=== PATIENT | male | born 1995 | race Caucasian/White ===

== ENCOUNTER 2024-06-04 11:54 | Emergency (ER) | payer BC, SELFPAY ==
--- NOTE | 2024-06-04 12:59 | PD.EDANKLE ---
Lower Extremity Injury RME/HPI General Chief Complaint: Ankle/Foot Injury Stated Complaint: LEFT BIG TOE INGROWN NAIL Time Seen by Provider: 06/04/24 12:20 Source: patient Arrival date/time: 06/04/24 11:54 This is a 29-year-old male who presents to the emergency department for evaluation of recurrent ingrown toenails, currently affecting the left great toe. He reports a history of similar issues in the past. The patient is currently on antibiotics and has been evaluated by his primary care provider. He is pending referral to podiatry for possible partial nail removal. He presents today for further evaluation. Mode of arrival: ambulatory Related Data Allergies Allergy/AdvReac Type Severity Reaction Status Date / Time No Known Allergies Allergy Verified 06/04/24 11:55 Course Quality Measures none Extremity Injury, Lower MDM Narrative MDM Narrative:: On exam, there is mild erythema noted to the left great toe consistent with an ingrown toenail. No purulent drainage, fluctuance, or signs of severe infection were observed. The patient remains clinically stable. Assessment and Plan: 29-year-old male with history of recurrent ingrown toenails, currently affecting the left great toe. Mild erythema without signs of severe infection Currently on antibiotics Evaluated by PCP, pending podiatry referral for possible partial nail removal No acute intervention required in ED Discharged home with instructions to continue antibiotics and follow up with podiatry as planned Patient data External records reviewed:: [facility] previous records Clinical information provided by:: patient Social determinants that could affect healthcare access:: none Patient has the following chronic illnesses:: no How is presenting disease/condition affected by chronic disease/condition?: no chronic disease Evaluation data The following diagnostics were reviewed and interpreted by me:: other (specify) Lab and/or radiology exams considered but not ordered:: no Interpretation Summary: no Medications / Prescriptions Medications or Prescriptions considered but not ordered:: no Medication administrations:: no Consultations Consultation(s) initiated? (list below): No Diagnosis Extremity Injury, Lower Differential Diagnosis: ankle sprain and strain, puncture wound of foot and fracture of toe Most likely diagnosis given after review of the tests above:: Ingrown toenail Admission Indicated Admission indicated?: not indicated Admission Request Was there a request for admission?: No Disposition Plan Disposition Plan: Discharge Discharge Attestation Discharge Attestation: The patient and all family members were given an opportunity to ask questions and understood the discharge instructions. Discharge instructions specifically effects, indications for sooner follow up or return to the emergency department, and the expected course of current diagnosis. Patient condition: Stable Discharge Plan Plan Patient Disposition: HOME (Self Care) Patient condition on transfer: Stable Problem List Clinical Impression: Ingrowing nail, left great toe Patient/Caregiver Discharge Instructions Discharge Activity: activity as tolerated Education Materials: ED Toenail Ingrown Infec Abx Onl Additional Instructions: - Please continue your antibiotic as directed. There is no purulent discharge or severe infection You can have this excised by your PCP or sewing trimmer. Please call see if they can expedite your referral. -You need to do the warm soaks 3 times a day Return to the emergency department this any worsening symptoms change in condition. Print Language: Jamaican Stand Alone Forms: Yanni Award Info., Patient Portal Info Letter PA/[employer] Supervising Physician PA/[employer] Supervising Physician: Dr. Evans
== END 2024-06-04 13:05 | disposition home or self-care (01) ==
LOC: SERX 13:13
PROVIDERS: Emergency Provider Emergency Medicine
DX: L60.0 Ingrowing nail (principal)
CPT/HCPCS: 99281